=== PATIENT | female | born 1985 | race Caucasian/White ===

== ENCOUNTER 2016-11-22 19:57 | Emergency (ER) | payer OTHER ==
[2016-11-22 23:13] LABS: ABSOLUTE EOSINOPHILS # (AUTO) 0.1 10^3/uL (0.0-0.6); ABSOLUTE LYMPHOCYTES (AUTO) 2.7 10^3/uL (0.5-4.7); ABSOLUTE MONOCYTES (AUTO) 0.4 10^3/uL (0.1-1.4); ABSOLUTE NEUT (AUTO) 4.7 10^3/uL (1.7-8.2); BASOPHILS % (AUTO) 0.5 % (0-2); EOSINOPHILS % (AUTO) 1.6 % (0-6); HEMOGLOBIN 14.4 g/dL (12.0-15.5); HGB HCT DIFFERENCE 0.2; LYMPHOCYTES % (AUTO) 34.2 % (13-45); MEAN CORPUSCULAR HEMOGLOBIN 30.1 pg (27.0-33.4); MEAN CORPUSCULAR HGB CONC 33.4 g/dL (32.0-36.0); MEAN CORPUSCULAR VOLUME 90 fl (80-97); MONOCYTES % (AUTO) 5.2 % (3-13); RED BLOOD COUNT 4.78 10^6/uL (3.72-5.28); SEGMENTED NEUTROPHILS % (AUTO) 58.5 % (42-78)
[2016-11-23 00:01] LABS: ALANINE AMINOTRANSFERASE 26 U/L (9-52); ALBUMIN 4.7 g/dL (3.5-5.0); ALKALINE PHOSPHATASE 59 U/L (38-126); ANION GAP 11 (5-19); ASPARTATE AMINO TRANSFERASE 16 U/L (14-36); BILIRUBIN,DIRECT 0.3 mg/dL (0.0-0.4); BILIRUBIN,TOTAL 0.4 mg/dL (0.2-1.3); BLOOD UREA NITROGEN 12 mg/dL (7-20); CALCIUM 9.8 mg/dL (8.4-10.2); CARBON DIOXIDE 23 mmol/L (22-30); CHLORIDE 105 mmol/L (98-107); CREATININE RESULT 0.72 mg/dL (0.52-1.25); GLUCOSE 97 mg/dL (75-110); POTASSIUM 4.1 mmol/L (3.6-5.0); SODIUM 138.5 mmol/L (137-145); TOTAL PROTEIN 7.7 g/dL (6.3-8.2)
[2016-11-23] MEDS ORDERED: ACETAMINOPHEN 325 MG TABLET PO ONE (00:26)
--- NOTE | 2016-11-23 01:27 | ER Document Report ---
ED GI/ - General Chief Complaint: ectopic Stated Complaint: DIZZY,NAUSEA,VOMITING Time Seen by Provider: 11/22/16 22:44 TRAVEL OUTSIDE OF THE [place] IN LAST 30 DAYS: No - HPI Patient complains to provider of: - with concern for ectopic Onset: Other - patient admits to cramping on/off for one week, has been following with PCP with serial b-hcg, went to [facility] today and was concerned for ectopic Quality of pain: Achy - at her tailbone Severity at maximum: Mild Severity in ED: Mild Vaginal bleeding (Compared to normal period): None : 5 Para: 3 Abortions: 1 OB ultrasound done: Yes Notes: 11/23/16 04:39 PMH: PCOS - Related Data Allergies/Adverse Reactions: acetaminophen [From Percocet] Allergy (Verified 11/22/16 21:04) minocycline [Minocycline] Allergy (Verified 11/22/16 21:04) oxycodone HCl [From Percocet] Allergy (Verified 11/22/16 21:04) Past Medical History - Social History Smoking Status: Never Smoker Chew tobacco use (# tins/day): No Frequency of alcohol use: None Drug Abuse: None Family History: Reviewed & Not Pertinent Patient has suicidal ideation: No Patient has homicidal ideation: No Renal/ Medical History: Denies: Hx Peritoneal Dialysis Past Surgical History: Reports: Hx Abdominal Surgery Review of Systems - Review of Systems Constitutional: No symptoms reported Cardiovascular: No symptoms reported Respiratory: No symptoms reported Gastrointestinal: No symptoms reported Genitourinary: No symptoms reported Female Genitourinary: See HPI -: Yes All other systems reviewed and negative Physical Exam - Vital signs Vitals: Temp Pulse Resp BP Pulse Ox 98.9 F 94 16 121/85 100 11/22/16 21:00 11/22/16 21:00 11/22/16 21:00 11/22/16 21:00 11/22/16 21:00 - Notes Notes: PHYSICAL EXAM GENERAL: Alert, interacts well. HEAD: Normocephalic, atraumatic. EYES: Pupils equal, round, and reactive to light. Extraocular movements intact. ENT: Oral mucosa moist, tongue midline. NECK: Full range of motion. Supple. Trachea midline. LUNGS: Clear to auscultation bilaterally, no wheezes, rales, or rhonchi. No respiratory distress. HEART: Regular rate and rhythm. No murmurs, gallops, or rubs. ABDOMEN: Soft, nondistended, nontender. No guarding, rebound, or rigidity.. Bowel sounds present in all 4 quadrants. Female exam deferred EXTREMITIES: Moves all 4 extremities spontaneously. No edema, radial and dorsalis pedis pulses 2/4 bilaterally. No cyanosis. NEUROLOGICAL: Alert and oriented x4. Normal speech. PSYCH: Normal affect, normal mood. SKIN: Warm, dry, normal turgor. No rashes or lesions noted. Course - Re-evaluation Re-evalutation: 11/23/16 04:38 Patient is a 31-year-old female presents emergency department with concerns for an ectopic . Was referred over by [facility] primary care provider due to abnormality seen on transvaginal ultrasound done at [facility]. This ultrasound is not available in our system. Repeat shows evidence of polycystic ovarian syndrome bilaterally no evidence of intrauterine but thickening of the endometrial stripe. At this time patient's physical exam is benign,. Beta-hCG is 206. 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 Price recommends follow-up in the office today with her labs from her primary care provider. No indications for methotrexate or ex lap at this time. Patient is hemodynamically stable, no acute distress and afebrile. Patient stable for discharge home - Vital Signs Vital signs: Temp Pulse Resp BP Pulse Ox 98.2 F 80 18 124/56 L 98 11/23/16 02:41 11/23/16 02:41 11/23/16 02:41 11/23/16 02:41 11/23/16 02:41 - Laboratory Result Diagrams: 11/22/16 22:40 11/22/16 23:25 Laboratory results interpreted by me: 11/22/16 23:25 Beta HCG, Quant 206.51 H - Diagnostic Test Radiology reviewed: Reports reviewed Discharge - Discharge Clinical Impression: Abnormal US (ultrasound) of abdomen Condition: Good Disposition: HOME, SELF-CARE Instructions: Ectopic Precaution ([facility]) Additional Instructions: Please follow-up with your primary care provider and MET[employer] SPONGE MAKING MACHINE OPERATOR at [facility] regarding your visit today. If you are not able to get in with them either today November 23 or tomorrow November 24, please make an appointment to be seen at [facility]. If you decide to go to [facility], please be sure to bring copies of your most recent labs especially your beta hCGs from [facility]. Referrals: [facility] [Provider Group] - 11/23/16 YU CHRISTENSEN MD [Primary Care Provider] - 11/23/16
[2016-11-23 02:42] VITALS: BP 124/56
--- NOTE | 2016-11-24 15:14 | RADIOLOGY REPORT (SQ) ---
EXAM DESCRIPTION: U/S OB TRANSVAG W/DOPPLER COMPLETED DATE/TIME: 11/22/2016, 2342 hours REASON FOR STUDY: Evaluate for ectopic COMPARISON: No previous imaging TECHNIQUE: Endovaginal ultrasound was performed, including grayscale and cine clips. Selected color Doppler images were performed. Beta HCG levels: 11/16/2016 beta HCG 16 11/20/2016 beta HCG 18 11/22/2016 beta HCG 206 LIMITATIONS: None FINDINGS: Uterus measures 7 x 5 x 4.5 cm in size. There is a thickened echogenic endometrium withou t intrauterine identified. Endometrium measures 2.3 cm in thickness. Cervix closed, 2.5 cm in length. No nabothian cysts. No free cul-de-sac fluid Right ovary 4.6 x 2.8 x 2.2 cm in size with several small follicles. Normal right ovary color flow. No right adnexal mass. Left ovary is 3.6 x 3.1 x 2.7 cm in size. There is a complex cyst, 2.3 x 2 x 1.4 cm in size along th e left ovary with peripheral color flow. This may represent a hemorrhagic corpus luteal cyst. Left ovarian ectopic could not entirely be excluded. Close clinical follow-up with sequential beta HCG as sessment and follow-up ultrasound recommended. IMPRESSION: No intrauterine identified. Complex hemorrhagic cyst left ovary with peripheral color flow. This may represent a hemorrhagic cor pus luteal cyst. Left ovarian ectopic could not entirely be excluded. Close clinical followup with sequential beta HCG assessment and possible follow-up ultrasound recomme nded. This report was dictated 1045 hours 11/23/2016 due to downtime on the Internet. Patient does have a f ollow-up appointment today, 11/23/[address] Price according to the ED chart.
== END 2016-11-23 02:42 | disposition home or self-care (01) ==
LOC: ER 19:57
DX: O26.899 Other specified pregnancy related conditions, unspecified trimester (principal); R93.5 Abnormal findings on diagnostic imaging of other abdominal regions, including retroperitoneum; R25.2 Cramp and spasm; O34.80 Maternal care for other abnormalities of pelvic organs, unspecified trimester; E28.2 Polycystic ovarian syndrome; Z3A.00 Weeks of gestation of pregnancy not specified; Z88.5 Allergy status to narcotic agent; Z88.1 Allergy status to other antibiotic agents
CPT/HCPCS: 36415; 76817; 80053; 84702; 85025; 86850; 86900; 86901; 93976; 99284

== ENCOUNTER → 2019-04-15 | Outpatient (CLI) | payer OTHER ==
--- NOTE | 2019-04-18 08:54 | RADIOLOGY REPORT (SQ) ---
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 RADIONUCLIDE AND DOSE: 10.78 mCi F18 FDG The route of agent administration: Intravenous FASTING BLOOD SUGAR: 96 mg/dl CONTRAST TYPE AND DOSE: No CT contrast given. TECHNIQUE: Blood glucose level was verified. Above dose of FDG was injected intravenously. 2-D seg mented attenuation correction images were obtained from the base of the skull to the midthighs. Nonc ontrast CT images were obtained for attenuation correction and fusion with emission images. CT image s were performed without oral or intravenous contrast and are not sensitive for parenchymal lesions. A series of overlapping emission PET images were obtained. Images reviewed and manipulated at [facility] work station by the radiologist. Images stored on PACS. LIMITATIONS: None. FINDINGS: HEAD AND NECK: There are prominent left level 1B and right level 2A and 2B lymph nodes rika t on average measure 10 mm in long axis diameter ; these lymph nodes are similar in size compared to the PET from 10/24/2015 and demonstrate no abnormal FDG uptake. The mild symmetric uptake within the palatine tonsils and submandibular glands is nonspecific. No areas of abnormal metabolic activity ar e identified in the soft tissues of the head and neck. CHEST: No areas of abnormal metabolic activity in the chest. ABDOMEN AND PELVIS: The liver demonstrates heterogeneous non focal FDG uptake with an average SUV of 2.5. There is expected physiologic activity throughout the gastrointestinal and genitourinary tracts . No areas of abnormal metabolic activity are identified in the abdomen and pelvis. PROXIMAL LOWER EXTREMITIES: No areas of abnormal metabolic activity in the soft tissues of the lower extremities. BONES: No areas of abnormal metabolic activity in the imaged axial and appendicular skeleton. ADDITIONAL CT FINDINGS: Surgical clips/ hyperdensities in the mesenteries (image 150 of series 3) rika t are unchanged. The spleen is normal in size. OTHER: No other findings. IMPRESSION: No metabolic evidence of residual disease or recurrence. TECHNICAL DOCUMENTATION: JOB ID: [id number] [employer]- All Rights Reserved Reading location - IP/workstation name: [email or web address]
== END ==
LOC: RAD 09:46
PROVIDERS: ATTEND Internal Medicine Hematology & Oncology
DX: C85.83 Other specified types of non-Hodgkin lymphoma, intra-abdominal lymph nodes (principal)
CPT/HCPCS: 78815; A9552